=== PATIENT | female | born 1980 | race Caucasian/White ===

== ENCOUNTER 2017-06-05 15:26 | Emergency (ER) | payer OTHER ==
[~2017-06-05] VITALS: Ht 149.9 cm; Wt 110.5 kg
[~2017-06-05 15:26] MED LIST: DSS100 PO; FLUO-191 PO; RISP1 PO; TRAZ-144 PO; [UNRECOGNIZED DRUG - CODE] PO
[2017-06-05] MEDS ORDERED: SODIUM CHLORIDE 0.9% 1,000 ML IV ONE (15:45)
[2017-06-05 17:35] VITALS: BP 120/77
== END 2017-06-05 17:37 | disposition home or self-care (01) ==
LOC: EMS 15:28
DX: G40.909 Epilepsy, unspecified, not intractable, without status epilepticus (principal); Q90.9 Down syndrome, unspecified
CPT/HCPCS: 36415; 96360; 99285; G0482; J7030